=== PATIENT | male | born 1980 | race Caucasian/White ===

== ENCOUNTER 2016-10-27 19:52 | Emergency (ER) | payer SELFPAY | END 2016-10-27 20:20 | LOC: DL.ED 19:52 | DX: Z53.21 Procedure and treatment not carried out due to patient leaving prior to being seen by health care provider (principal) ==

== ENCOUNTER 2016-11-10 18:29 | Emergency (ER) | payer SELFPAY ==
[2016-11-10 18:35] VITALS: BP 132/71
--- NOTE | 2016-11-10 19:12 | EDM.PDOC ---
ED HPI GENERAL MEDICAL PROBLEM - General Chief Complaint: General Stated Complaint: TEMP, BODY ACHE [id number] Time Seen by Provider: 11/10/16 19:07 Source of Information: Reports: Patient History Limitations: Reports: No limitations - History of Present Illness INITIAL COMMENTS - FREE TEXT/NARRATIVE: Generalized body aches and fever yesterday, chest started burning on Thursday. Using Nyguil at home Duration: Day(s): Location: Reports: generalized Quality: Reports: Ache Severity: moderate Associated Symptoms: Reports: cough, fever/chills. Denies: nausea/vomiting Bilateral Generalized Pain Score (Numeric/FACES): 10 - Related Data Allergies Allergy/AdvReac Type Severity Reaction Status Date / Time No Known Allergies Allergy Verified 11/10/16 18:32 Home Meds: Home Meds Dextromethorphan/guaiFENesin [Robitussin DM] 10 ml PO ASDIRECTED PRN 03/21/15 [ History] Ibuprofen [Advil] 600 mg PO ASDIRECTED PRN 03/21/15 [History] Past Medical History - Past Health History Medical/Surgical History: Denies Medical/Surgical History - Past Surgical History Other HEENT Surgeries/Procedures: facial surgery about 10 years ago Social & Family History - Family History Family Medical History: Noncontributory - Tobacco Use Smoking Status *Q: Current Every Day Smoker Years of Tobacco use: 10 Packs/Tins Daily: 0.5 Used Tobacco, but Quit: No Second Hand Smoke Exposure: Yes - Caffeine Use Caffeine Use: Reports: Coffee, Energy drinks, Soda - Recreational Drug Use Recreational Drug Use: No ED ROS GENERAL - Review of Systems Review Of Systems: See Below Constitutional: Reports: fever, chills, malaise HEENT: Denies: Ear pain, Sinus problem, Throat pain Respiratory: Reports: Cough, Other (smoker). Denies: Sputum Cardiovascular: Reports: No symptoms GI/Abdominal: Reports: No symptoms : Reports: no symptoms Musculoskeletal: Reports: other (generalized body aches) Neurological: Reports: No Symptoms ED EXAM, GENERAL - Physical Exam Exam: See Below Exam Limited By: No limitations General Appearance: alert, mild distress Eye Exam: bilateral eye: EOMI Ears: normal external exam Ear Exam: bilateral ear: erythema Nose: normal inspection Throat/Mouth: Inflammation Head: atraumatic Neck: lymphadenopathy (L), lymphadenopathy (R) (mild bilateral) Respiratory/Chest: no respiratory distress, other (drynon productive cough). No : crackles, rales, rhonchi, wheezing Cardiovascular: normal peripheral pulses, regular rate, rhythm, tachycardia GI/Abdominal: soft, non tender Back Exam: full range of motion Extremities: normal range of motion Neurological: alert, oriented, normal cognition Psychiatric: normal affect, normal mood Skin Exam: Warm, Dry, Intact, Normal color Course - Vital Signs Last Recorded V/S: Last Vital Signs Temp 100.2 F 11/10/16 18:33 Pulse 120 H 11/10/16 18:33 Resp 18 11/10/16 18:33 BP 132/71 11/10/16 18:33 Pulse Ox 100 11/10/16 18:33 Departure - Departure Time of Disposition: 19:17 Disposition: Home, Self-Care 01 Condition: good Clinical Impression: Influenza A Instructions: Influenza, Adult, [id number] Referrals: PCP,Unobtain [Primary Care Provider] - Forms: ED Department Discharge Additional Instructions: increase fluid intake alternate tylenol and ibuprofen for pain/ fever every 4 hours as needed tamiflu 75mg one twice daily for 5 days avoid exposure to young and elderly
== END 2016-11-10 19:26 | disposition home or self-care (01) ==
LOC: DL.ED 18:29
DX: J10.1 Influenza due to other identified influenza virus with other respiratory manifestations (principal); F17.210 Nicotine dependence, cigarettes, uncomplicated; Z79.899 Other long term (current) drug therapy
CPT/HCPCS: 87804; 99283